=== PATIENT | female | born 1980 | race Caucasian/White ===

== ENCOUNTER 2020-01-26 11:51 | Outpatient (CLI) | payer BC, SELFPAY ==
--- NOTE | 2020-01-26 12:44 | ECG_ITS ---
Measurements Intervals [place] Rate: 57 P: 75 CT: 150 QRS: 83 QRSD: 88 T: 56 QT: 407 QTc: 399 Interpretive Statements SINUS BRADYCARDIA WITH SINUS ARRHYTHMIA BASELINE ARTIFACT- I, II, III, AVR, AVL, AVF BORDERLINE ECG Electronically Signed On 01-26-2020 13:00:10 CDT by Santi Shi D.O.
[2020-01-26 13:09] LABS: Basophils Absolute Auto 0.1 K/mm3 (0.0-0.1); Basophils Percent Auto 1.1 % (0.2-1.2); Eosinophils Absolute Auto 0.3 K/mm3 (0-0.3); Hematocrit 43.4 % (37.0-47.0); Hemoglobin 14.5 g/dL (12.0-15.0); Immature Granulocyte Absolute 0.01 K/mm3 (0.00-0.031); Immature Granulocyte Percent A 0.2 % (0-0.5); Lymphocytes Absolute Auto 1.51 K/mm3 (0.9-3.2); Lymphocytes Percent Auto 23.7 % (18.3-44.2); Mean Corpuscular HGB Conc 33.4 g/dl (32-36); Mean Corpuscular Volume 92.7 fl (80-100); Monocytes Absolute Auto 0.4 K/mm3 (0.1-0.6); Neutrophils Absolute Auto 4.1 K/mm3 (1.3-6.7); Platelet Count Result 208 k/mm3 (150-375); Red Blood Count 4.68 M/mm3 (4.2-5.4); Red Cell Distribution Width 12.1 % (11.5-14.5); White Blood Count 6.4 K/mm3 (4.5-10.0)
[2020-01-26 13:20] LABS: Prothrombin Time 12.8 Seconds (11.1-14.7)
[2020-01-26 13:21] LABS: Partial Thromboplastin Time 27.7 SECONDS (22.3-36.8)
[2020-01-26 13:29] LABS: Alanine Aminotransferase 19 U/L (4-35); Albumin Level 4.6 g/dL (3.5-5.1); Alkaline Phosphatase 59 U/L (38-126); Aspartate Amino Transferase 28 U/L (14-36); Bilirubin,Total 1.3 mg/dL (0.2-1.3); Blood Urea Nitrogen 15 mg/dL (7-17); Calcium 9.2 mg/dL (8.4-10.2); Carbon Dioxide 30 mmol/L (22-30); Chloride 102 mmol/L (98-107); Estimated Glomerular Filt Rate > 60; Glucose 84 mg/dL (65-105); Sodium 137 mmol/L (137-145)
== END 2020-01-26 11:52 | disposition home or self-care (01) ==
PROVIDERS: PCP Family Medicine; Visit Provider Urology
DX: N81.3 Complete uterovaginal prolapse (principal)
CPT/HCPCS: 36415; 80053; 85025; 85610; 85730; 87086; 93005

== ENCOUNTER 2020-02-05 00:12 | Outpatient (CLI) | payer BC, SELFPAY ==
[2020-02-05 15:54] LABS: SARS-CoV-2 RNA PCR Negative
== END 2020-02-05 00:13 | disposition home or self-care (01) ==
LOC: ANHCOVIDDT 00:12
PROVIDERS: PCP Family Medicine; Visit Provider Urology
DX: Z01.818 Encounter for other preprocedural examination (principal); Z11.59 Encounter for screening for other viral diseases
CPT/HCPCS: 87635; C9803; U0003

== ENCOUNTER 2020-02-08 04:09 | Day surgery (SDC) | payer BC, SELFPAY ==
[2020-01-26 12:43] VITALS: BP 104/70; PULSE 69; RESP 18; TEMP 36.7; O2SAT 97; BMI 23.5
--- NOTE | 2020-02-07 16:28 | WPDANESEPP ---
Anes - Eval Pre Procedure Procedure: Operation Date: 02/08/20 07:30 Proposed Procedures p Robotic Sacrocolpopexy with Urethral Sling - Jacky Doss MD s Robotic Assisted Supracervical Hysterectomy, Bilateral Salpingectomy - Dallin Head MD Date/Time: 02/07/20 16:28 Surgeon: kelin Pre Op Diagnosis: uterine/vaginal prolapse, stress incontinence, Patient Data Age: 39 Gender: F Height: 1.57 m Weight: 58.4 kg Last Vital Signs Temp 36.7 C 01/26/20 12:43 Pulse 69 01/26/20 12:43 Resp 18 01/26/20 12:43 BP 104/70 01/26/20 12:43 Pulse Ox 97 01/26/20 12:43 Allergies Allergy/AdvReac Type Severity Reaction Status Date / Time No Known Allergies Allergy Mild Verified 02/02/20 09:49 Home Medications Medication Instructions Recorded Confirmed Type beclomethasone dipropionate [Qvar 1 inh INHALATION DAILY 01/26/20 01/26/20 History RediHaler] fluticasone propionate [Flonase 1 spray INTRANASAL DAILY 01/26/20 01/26/20 History Allergy Relief] loratadine [Claritin] 10 mg PO DAILY 01/26/20 01/26/20 History lo-my-voal-FA-Ca carb-vit K 1 tablet PO DAILY 01/26/20 01/26/20 History [Women's Multivitamin] turmeric 500 mg PO DAILY 01/26/20 01/26/20 History Patient hx anesthesia problems: none Family hx anesthesia problems: none PMFSH Past Medical History Medical History (Updated 02/07/20 @ 16:29 by Sowmya Cruz CRNA) Asthma Scoliosis Stress incontinence Uterine prolapse Vaginal delivery Social History Social History Smoking status: Never smoker Second hand tobacco smoke exposure: No Alcohol intake: never Exam Day of Procedure 02/07/20 16:28
[2020-02-08] VITALS (15 sets, daily range): BP systolic 75–108; BP diastolic 41–66; PULSE 50–78; RESP 14–18; TEMP 36.3–36.8; O2SAT 96–100
--- NOTE | 2020-02-08 06:46 | WPDANESEPPF ---
Anes - Initial Pre Proc Eval Procedure: Operation Date: 02/08/20 07:30 Proposed Procedures p Robotic Sacrocolpopexy with Urethral Sling - Jacky Doss MD s Robotic Assisted Supracervical Hysterectomy, Bilateral Salpingectomy - Dallin Head MD Date/Time: 02/08/20 06:46 Surgeon: Jacky Doss MD Pre Op Diagnosis: uterine/vaginal prolapse, stress incontinence, Patient Data Age: 39 Gender: F Height: 5 ft 2 in Weight: 58.4 kg Last Vital Signs Temp 36.7 C 01/26/20 12:43 Pulse 69 01/26/20 12:43 Resp 18 01/26/20 12:43 BP 104/70 01/26/20 12:43 Pulse Ox 97 01/26/20 12:43 Allergies Allergy/AdvReac Type Severity Reaction Status Date / Time No Known Allergies Allergy Mild Verified 02/02/20 09:49 Home Medications Medication Instructions Recorded Confirmed Type beclomethasone dipropionate [Qvar 1 inh INHALATION DAILY 01/26/20 01/26/20 History RediHaler] fluticasone propionate [Flonase 1 spray INTRANASAL DAILY 01/26/20 01/26/20 History Allergy Relief] loratadine [Claritin] 10 mg PO DAILY 01/26/20 01/26/20 History ka-sm-zadu-FA-Ca carb-vit K 1 tablet PO DAILY 01/26/20 01/26/20 History [Women's Multivitamin] turmeric 500 mg PO DAILY 01/26/20 01/26/20 History Patient hx anesthesia problems: none Family hx anesthesia problems: none PMFSH Past Medical History Medical History Asthma Scoliosis Stress incontinence Uterine prolapse Vaginal delivery Family History Family History Father Family history of gastrointestinal disorder Family history of allergic disorder Sibling Family history of gastrointestinal disorder Grandparent Family history of pancreatic cancer Social History Social History Smoking status: Never smoker Second hand tobacco smoke exposure: No Alcohol intake: never Anes - Eval Final PreProcedure Day of Procedure 02/08/20 06:46 Patient weight: normal Heart: regular rate and rhythm Lungs: clear to auscultation Airway: Mallampati scale class II Neurological: alert and oriented Last oral intake: >/= 8 hours ASA classification: II Emergent: no Anesthetic plan: proceed Anesthesia type and monitoring: general ETT and standard monitoring Informed Consent: The patient's anesthetic plan and its attendant risks and benefits were discussed with the patient/family/POA. Questions were solicited and answers provided to the satisfaction of the patient/family/POA.
[2020-02-08] MEDS: LACTATED RINGERS 1,000 ML 30 ML IV CONT ×2 (06:50→11:01)
--- NOTE | 2020-02-08 07:22 | WPDHPUPDATE1 ---
History and Physical Update Update Date/Time: 02/08/20 07:22 History and Physical has been reviewed, including an updated exam of the patient. There are NO changes in the patient's condition. Risks, benefits, and alternatives have been discussed and questions answered. Patient agrees to proceed with procedure.
--- NOTE | 2020-02-08 07:36 | PM.IMHP ---
H&P: HPI History of Present Illness Chief complaint: uterine/vaginal prolapse, stress incontinence, Narrative: Lashon De La Rosa is a 39 year old female with long history of uterine prolapse which she has been using a pessary. She desires definitive treatment. She has been evaluated by Dr. Doss. She desires the supracervical hysterectomy with bilateral salpingectomy and will be getting the sacral colpopexy by Dr. Doss. Review of Systems Review of Systems: All systems reviewed & are unremarkable except as noted in HPI and below Constitutional: Constitutional: Reports no additional constitutional complaints Eyes: Eyes: Reports no additional eye complaints ENT: Reports Normal hearing present Cardiovascular: Cardiovascular: Denies chest pain and Denies dyspnea Respiratory: Respiratory: Reports no additional respiratory complaints, Reports cough, Denies dyspnea and Reports other Gastrointestinal: Gastrointestinal: Denies abdominal pain Genitourinary: Genitourinary: Reports no additional female genitourinary complaints, Reports as per HPI, Denies dyspareunia, Denies vaginal discharge, Denies vaginal dryness, Denies vaginal odor and Denies vaginal pruritus Neurologic: Reports Normal hearing present Psychiatric: Psychiatric: Reports no additional psychiatric complaints Endocrine: Endocrine: Reports no additional endocrine complaints Hematologic/Lymphatic: Hematologic/Lymphatic: Reports no additional hematologic/lymphatic complaints [facility] Past Medical History Medical History Asthma Scoliosis Stress incontinence Uterine prolapse Vaginal delivery Family History Family History Father Family history of gastrointestinal disorder Family history of allergic disorder Sibling Family history of gastrointestinal disorder Grandparent Family history of pancreatic cancer Social History Social History Smoking status: Never smoker Second hand tobacco smoke exposure: No Alcohol intake: never Meds Home Medications and Allergies Home Medications Medication Instructions Recorded Confirmed Type beclomethasone dipropionate [Qvar 1 inh INHALATION DAILY 01/26/20 02/08/20 History RediHaler] fluticasone propionate [Flonase 1 spray INTRANASAL DAILY 01/26/20 02/08/20 History Allergy Relief] loratadine [Claritin] 10 mg PO DAILY 01/26/20 02/08/20 History xq-xv-lctu-FA-Ca carb-vit K 1 tablet PO DAILY 01/26/20 02/08/20 History [Women's Multivitamin] turmeric 500 mg PO DAILY 01/26/20 02/08/20 History Allergies Allergy/AdvReac Type Severity Reaction Status Date / Time No Known Allergies Allergy Mild Verified 02/08/20 07:30 Exam Const: General: healthy appearing, no acute distress, alert and awake Nutritional Appearance: well nourished Orientation/consciousness: oriented to person, oriented to place, oriented to time and patient oriented x3 Limitations: no limitations HENMT: Head: normal to inspection Ears: hearing grossly normal bilaterally Eyes: General: appearance normal, both eyes and all related structures Neck: Neck: normal visual inspection Resp: Effort & Inspection: normal respiratory effort and other Auscultation: clear to auscultation bilaterally Cardio: Rate: regular rate Rhythm: regular rhythm GI: Inspection: normal to inspection GI Palp: Yes No hepatosplenomegaly present Rectal Exam: visual inspection normal : General: Yes bladder normal to palpation External Female Exam: normal external appearance and normal appearance of the urethra Speculum Exam - Vagina: normal appearance of the vagina Speculum Exam - Cervix: normal appearance of the cervix and Other cervical findings present (cervix descends to introitus) Bimanual exam- vagina & uterus: normal bimanual exam, uterine size normal, bladder normal to palpation, cons
[2020-02-08] MEDS: ceFAZolin 2 GM/D5W 50 ML 2 GM/50 ML BAG IVPB (07:46)
[2020-02-08] MEDS: metroNIDAZOLE 500 MG/ISO 100ML 500 MG/100 ML BAG 100 MG IVPB ×2 (07:56→16:21)
[2020-02-08] MEDS: BUPIVACAINE/EPINEPHRINE 0.25% 50 ML VIAL 20 ML INFILTRATE (08:32)
--- NOTE | 2020-02-08 09:04 | PM.PROC ---
Procedure Note - Detailed Date of procedure: 02/08/20 Pre-op diagnosis: uterine/vaginal prolapse, stress incontinence, Post-op diagnosis: same Procedure performed: Da roz assisted laparoscopic supracervical hysterectomy and bilateral salpingectomy Description of procedure: After informed consent was obtained patient was taken to the operating room. She was prepped and draped in sterile fashion. Dr. Doss placed the robotic ports. Attention was turned to the vagina speculum was inserted and a single-tooth tenaculum was placed on the anterior lip of the cervix the uterus was sounded to 6 cm the acorn uterine manipulator was placed into the cervical canal. Attention was then turned to the surgery console. Attention was turned to the right round ligament which was cauterized and incised the anterior leaf of the broad ligament was further dissected anteriorly to the vesicouterine peritoneum the bladder was dissected off of the upper lower uterine segment. The attention was turned to the right fallopian tube which was cauterized from the mesosalpinx. The right ovarian ligament was cauterized and incised. The ascending uterine vessels were cauterized. The uterine arteries were skeletonized. The attention was then turned to the left and the left fallopian tube was cauterized from the nasal salpinx attention was then turned to the left round ligament which was cauterized and incised anteriorly the vesicouterine peritoneum was incised from the left side and the bladder was dissected from the upper lower uterine segment. The left ovarian ligament was cauterized and the ascending uterine vessels were cauterized the posterior leaf of the broad ligament was further dissected and the uterine arteries were skeletonized. The uterine arteries were cauterized on the left and the right. The uterus was then cauterized from the cervix at the level of the internal os. The cervical bed and the upper internal os was cauterized hemostasis was noted. EBL was 5 cc. Anesthesia: GETA Surgeon: Dallin Head MD Estimated blood loss (mL): 5 IV fluids (mL): 700 Urine output (mL): 200 Drains: No Packing: No Pathology: yes (uterus and right and left fallopian tubes) Complications: No immediate complications Condition: stable Disposition: other (Patient remained in OR for Dr. Quijano procedure) Findings: uterus 8-10 week size, normal fallopian tubes and ovaries bilaterally
--- NOTE | 2020-02-08 09:11 | SUR.OPER ---
Sonido Ebl=5ml
[2020-02-08] MEDS: IBUPROFEN IV 800 MG/200 ML 800 MG/200 ML BAG 400 MG IVPB (10:38)
--- NOTE | 2020-02-08 10:45 | SUR.OPER ---
Doss Ebl=20ml
--- NOTE | 2020-02-08 10:49 | PM.PROC ---
Procedure Note - Detailed Date of procedure: 02/08/20 Pre-op diagnosis: uterine/vaginal prolapse, stress incontinence, Uterine prolapse Post-op diagnosis: same Procedure performed: Robotic assisted laparoscopic sacral colpopexy Cystoscopy Description of procedure: She understood the risks of bleeding, infection, damage to surrounding organs, bowel injury, bowel obstruction, recurrence of prolapse, persistent or recurrent stress incontinence, mesh related complications including exposure and extrusion, diskitis, postoperative voiding dysfunction including incontinence and retention, hip and leg pain, dyspareunia, and she agrees to proceed. She was correctly identified and informed consent was obtained. She was brought to the operating room. She was given general anesthesia. She was placed in the dorsal lithotomy position. All pressure points were padded. She was given appropriate perioperative antibiotics. Time-out performed. I anesthetized the skin 3 fingerbreadths cephalad to the umbilicus. I incised the skin. I dissected down to locate the fascia. I grasped the fascia with Olegario clamps. I entered the fascia sharply. I placed Vicryl sutures for later fascial closure. I placed a midline trocar. Under direct vision 2 additional trocars were placed on the right and left upper quadrant. She was placed in steep Trendelenburg and the robot was docked. Her senior product development scientist performed the portion of the procedure and left the specimen and a sac which was extracted. I then sat at the console. With the Sizer in the vagina I created a plane on the anterior and posterior vaginal wall. This was done for several cm taking great care not to injure the vagina, bladder, or rectum. I introduced the mesh into the abdomen. I sewed the anterior leaflet of mesh on the anterior vaginal wall and posterior leaf of the mesh on the posterior vaginal wall with several Harford-Shaw sutures taking great care not to go through and through. I then reflected the colon laterally. I opened up the posterior peritoneum over the sacral promontory. I carried this into the cul-de-sac. I kept the ureters lateral. I freed up the edges. I located the anterior longitudinal ligament of the sacrum. I tensioned the mesh appropriately. I did a vaginal exam to ensure prolapse reduction without undue tension. I then sewed the proximal leaflet of mesh onto the ligament with 3 sutures of 2 0 Harford-Shaw. Next the mass was meticulously retroperitonealized with a running 2 0 Monocryl suture. I allowed the colon to go back into its normal anatomic location. There is no signs of any impingement or stricturing. The abdomen was exited. Fascia was closed. Skin was closed with Monocryl and glue. I then performed cystoscopy. The bladder is examined. There was no tumors, stones, foreign bodies, surgical artifact. Both ureters were seen to excrete clear yellow urine. There is no surgical artifact in the urethra. Catheter was then replaced. She was awakened and transferred to the PACU in stable condition. Anesthesia: GLMA Surgeon: Jacky Doss MD Drains: Yes (Jung catheter) Packing: Yes Complications: No immediate complications Condition: stable Disposition: PACU
--- NOTE | 2020-02-08 11:58 | SUR.PHASEI ---
Dr. Padgett made aware of BP and he is ok with pressure since patient is asymtomatic.
--- NOTE | 2020-02-08 12:33 | PC.NURSE ---
This patient, Lashon De La Rosa, was received from PACU per bed to room 283. Patient/family oriented to unit policies and routines
[2020-02-08] MEDS: ONDANSETRON INJ 4 MG/2 ML VIAL IV PUSH ×2 (12:41→18:22)
[2020-02-08] MEDS: KCL 20 MEQ/D5/0.45% SOD CHL 1,000 ML 100 ML IV CONT (12:41)
[2020-02-08] MEDS: KETOROLAC 30 MG/ML VIAL (*BKC) IV PUSH (17:19)
[2020-02-08] MEDS: SIMETHICONE 80 MG TAB.CHEW (21:10)
[2020-02-09] MEDS: SIMETHICONE 80 MG TAB.CHEW PO ×4 (00:15→13:38)
[2020-02-09] MEDS: metroNIDAZOLE 500 MG/ISO 100ML 500 MG/100 ML BAG 100 MG IVPB ×2 (00:30→08:30)
[2020-02-09] MEDS: KETOROLAC 30 MG/ML VIAL (*BKC) IV PUSH (04:25)
[2020-02-09 04:30] VITALS: BP 78/45; PULSE 69; RESP 16; TEMP 36.8
[2020-02-09] MEDS: ACETAMINOPHEN 325 MG TABLET 650 MG PO ×2 (07:34→13:38)
[2020-02-09] MEDS: ENOXAPARIN 30 MG/0.3 ML SYRINGE SUB-Q (07:37)
--- NOTE | 2020-02-09 07:47 | WPDANESPN ---
Anes - Prog Note Post-Op Date/Time: 02/09/20 07:47 Cardiovascular status: normal Respiratory status: normal Airway patency: baseline Mental status: baseline Post-Op hydration status: normal Vital Signs: Last Vital Signs Temp 36.8 C 02/09/20 04:30 Pulse 69 02/09/20 04:30 Resp 16 02/09/20 04:30 BP 78/45 L 02/09/20 04:30 Pulse Ox 98 02/08/20 15:55 I/O: Intake & Output 02/08/20 02/08/20 02/09/20 15:59 23:59 07:59 Intake Total 888 684 2059 Output Total 299 582 2062 Balance 150 -300 50 02/08/20 06:52 Blood Type O Positive Antibody Screen Negative Post-procedural complaints: none Patient Feedback: Patient satisfied with anesthetic care.
[2020-02-09 07:50] VITALS: BP 95/58; PULSE 63; RESP 18; TEMP 37.2; O2SAT 99
[2020-02-09] MEDS: DOCUSATE SODIUM 100 MG CAPSULE PO (09:40)
[2020-02-09] MEDS: CEPHALEXIN 500 MG CAPSULE PO (13:39)
--- NOTE | 2020-02-09 22:17 | P.PNOB_ITS ---
SUPERVISOR RECORDS CHANGE - A/P Assessment and plan (1) Status post hysterectomy: Code(s): Z90.710 - Acquired absence of both cervix and uterus Status: Acute Assessment and Plan: POD1 s/p Robotic supracervical hysterectomy/sacral colpopexy. She is doing well. Encouraged to ambulate, advance diet to regular. Anticipate discharge later in the day. Postoperative Procedures: Procedures Operation Date: 02/08/20 07:30 Actual Procedures Side Surgeon p Robotic Sacrocolpopexy Jacky Doss MD s Robotic Assisted Supracervical Hysterectomy, Bilateral Salpingectomy Bilateral Dallin Head MD Time Spent With Patient Time: Total time spent is greater than 50% in coordination of care (as documented) at patient's floor/unit and/or counseling patient: Time with patient: less than 15 minutes SUPERVISOR RECORDS CHANGE- PN:Subj Post-Op Subjective Date/time seen: 02/09/20 Seen at 0715 She reports adequate pain control. Had not ambulated much in the morning. Tolerated full liquid diet. No flatus. No leg pain. Review of Systems Review of Systems: All systems reviewed & are unremarkable except as noted in HPI and below Cardiovascular: Cardiovascular: Reports no additional cardiovascular complaints Respiratory: Respiratory: Reports no additional respiratory complaints Gastrointestinal: Gastrointestinal: Reports belching, Denies nausea and Denies vomiting Genitourinary: Genitourinary: Reports no additional female genitourinary complaints Musculoskeletal: Musculoskeletal: Reports no additional musculoskeletal complaints Exam Const: General: comfortable and no acute distress Orientation/consciousness: oriented to person, oriented to place and oriented to time Resp: Auscultation: clear to auscultation bilaterally Cardio: Rate: regular rate Rhythm: regular rhythm GI: GI Palp: Yes Soft to palpation, Yes Tenderness to palpation present (GI) and Yes Other GI palpation findings present (appropriate tenderness, bruising at umbilical incision, no drainage) Auscultation: Hypoactive bowel sounds present Neuro: General: oriented to person, oriented to place and oriented to time Extrem: General: no calf tenderness Psych: Mental Status: mental status grossly normal SUPERVISOR RECORDS CHANGE - PN: Obj Data Vital Signs Vital Signs: Vital Signs - 24 hr 02/09/20 04:30 02/09/20 07:50 Temperature 98.3 F 99 F Pulse Rate 69 63 Respiratory Rate 16 18 Blood Pressure 78/45 L 95/58 L Pulse Oximetry 99 Intake/Output Intake/Output: Intake & Output 02/06/20 02/07/20 02/08/20 02/09/20 23:59 23:59 23:59 23:59 Intake Total 1300 2150 Output Total 1450 2300 Balance -150 -150
--- NOTE | 2020-02-09 22:26 | P.DS_ITS ---
DS: Admitting Diagnosis Admitting Diagnosis Admitting Diagnosis: Uterine prolapse DS: Discharge Diagnosis Discharge Diagnosis (1) Uterine prolapse: Code(s): N81.4 - Uterovaginal prolapse, unspecified Status: Acute DS: Summary Time Spent with Patient Time attestation: Total time spent providing and/or coordinating discharge services: Exam GI: Other: incisions healing, mild bruising, no drainage, bowel sounds present. Ext nontender Perineal pad dry Extrem: Other: nontender, no swelling Psych: Affect: normal affect DS: Data Data Completed and Pending Completed studies during hospitalization: Pending at discharge 02/08/20 08:58 Surgical [PTH] Routine Discharge Plan Discharge Consulting providers: Dallin Head Patient Disposition: Home, Self-Care Discharge Instructions: No lifting >20lb, exercise for 6 weeks No tub bath or pool for 2 weeks Patient Instructions: Menopause (GEN), Hysterectomy (DC) Follow-up/Referrals: Jacky Doss MD [Physician] - 6 Weeks Dallin Head MD [Physician] - Discharge Orders: Discharge Order (Routine); Ordered 02/09/20 Ordered By: Dallin Head Discharge Medications: New hydrocodone-acetaminophen [Hubertus] 5-325 mg tablet 1 tablet PO Q4H PRN (Reason: pain) Qty: 20 RF: 0 docusate sodium [Colace] 100 mg capsule 100 mg PO BID Qty: 60 RF: 0 Continued fluticasone propionate [Flonase Allergy Relief] 50 mcg/actuation [place],Suspension 1 spray INTRANASAL DAILY RF: 0 loratadine [Claritin] 10 mg Tablet 10 mg PO DAILY RF: 0 Qvar RediHaler 40 mcg/actuation Hfa Aerosol Breath Activated 1 inh INHALATION DAILY RF: 0 Women's Multivitamin 18 mg-400 mcg- 500 mg-50 mcg Tablet 1 tablet PO DAILY RF: 0 turmeric 400 mg Capsule 500 mg PO DAILY RF: 0 Primary Care Provider: Sharmaine Dangelo Discharge Date/Time: 02/09/20 14:39 Attending physician on admission: Jacky Doss
== END 2020-02-09 14:39 | disposition home or self-care (01) ==
LOC: ANHSURGERY 08:40 → ANHOB2 12:33
PROVIDERS: Obstetrics & Gynecology; PCP Family Medicine; Visit Provider Urology
PROC: (CPT 57425; principal; 2020-02-08 07:30)
PROC: 0UT94ZZ Resection of Uterus, Percutaneous Endoscopic Approach (ICD-10-PCS; CPT 57425; 2020-02-08 07:30)
DX: N81.3 Complete uterovaginal prolapse (principal); N39.3 Stress incontinence (female) (male)
CPT/HCPCS: 58541; 57425; 36415; 86850; 86900; 86901; 88307; 99199; A9270; C1781; J0131; J0330; J0690; J1100; J1170; J1200; J1650; J1741; J1885; J2250; J2405; J2704; J2710; J3010; J3480; J7030; J7120

== ENCOUNTER → 2020-04-20 10:15 | Outpatient (CLI) | payer BC, SELFPAY ==
--- NOTE | ~2020-04-20 | XR_ITS ---
EXAMINATION: XR lumbar spine 2-3V DATE: 04/20/2020 10:37 INDICATION: Dorsalgia unspecified, chronic low back pain TECHNIQUE: Anteroposterior and lateral views of the lumbar spine, and cone-down lateral view of the l umbosacral junction were obtained. COMPARISON: 07/09/2017 FINDINGS: Thoracolumbar dextroscoliosis is not significantly changed. There is no fracture, dislocati on, or subluxation. The vertebral body heights are normal. There is mild loss of intervertebral disc space height at L4-5 and L5-S1. A moderate volume of colonic stool is present. IMPRESSION: 1. Mild lumbar spondylosis without acute findings or significant interval change. Reviewed, dictated and finalized at location A. IMPRESSION: 1. Mild lumbar spondylosis without acute findings or significant interval tan yamilet
== END ==
PROVIDERS: PCP Physician Assistant; Visit Provider Physician Assistant
DX: M47.896 Other spondylosis, lumbar region (principal)
CPT/HCPCS: 72100

== ENCOUNTER → 2020-04-20 10:18 | Outpatient (CLI) | payer BC, SELFPAY ==
--- NOTE | ~2020-04-20 | MM_ITS ---
EXAMINATION: MM screening bruna BI w piero HISTORY: Screening mammogram TECHNIQUE: Craniocaudal and mediolateral oblique 3-D tomosynthesis images were obtained and synthetic 2-D images were generated. CAD analysis was submitted and interpreted. COMPARISON: No prior mammogram is available for comparison at this institution. BREAST PARENCHYMAL COMPOSITION: The breasts are extremely dense, which lowers the sensitivity of mamm ography. FINDINGS: There is no evidence of suspicious mass, calcification, or architectural distortion to sugg est malignancy in either breast. There has been no suspicious interval change. IMPRESSION: 1. No mammographic evidence of malignancy. 2. Recommend routine screening mammography in one year. BI-RADS Category 1: Negative Reviewed, dictated and finalized at location A.
== END ==
PROVIDERS: PCP Family Medicine; Visit Provider Obstetrics & Gynecology
DX: Z12.31 Encounter for screening mammogram for malignant neoplasm of breast (principal)
CPT/HCPCS: 77063; 77067

== ENCOUNTER → 2020-05-21 07:42 | Outpatient (CLI) | payer BC, SELFPAY ==
--- NOTE | ~2020-05-21 | MR_ITS ---
EXAMINATION: MR lumbar spine wo con DATE: 05/21/2020 08:17 INDICATION: Chronic right-sided low back pain radiating down right leg. TECHNIQUE: Magnetic resonance imaging (MRI) of the lumbar spine was performed without intravenous con trast. Sequences included sagittal T2-weighted FSE, sagittal T2-weighted FS FSE, sagittal T1-weighted FSE, and axial T2-weighted FSE. COMPARISON: Lumbar spine radiographs 04/20/2020 FINDINGS: There is 17 degrees dextroscoliosis of thoracolumbar spine. Vertebral body heights are norm al. There is mildly decreased disc height at L1-L2, moderately decreased disc height at L4-L5, and mi ldly decreased disc height at L5-S1. The distal spinal cord signal intensity is normal. The conus med ullaris is at L1. The following disc levels are specifically discussed: L1-L2: The disc is mildly bulging. There is mild bilateral facet joint osteoarthritis. There is no ne ural foraminal stenosis. There is no central canal stenosis. L2-L3: The disc is mildly bulging. There is mild bilateral facet joint osteoarthritis. There is no ne ural foraminal stenosis. There is no central canal stenosis. L3-L4: The disc is mildly bulging. There is mild bilateral facet joint osteoarthritis. There is no ne ural foraminal stenosis. There is no central canal stenosis. L4-L5: The disc is bulging. There is mild bilateral facet joint osteoarthritis. There is mild bilater al neural foraminal stenosis. There is mild central canal stenosis. L5-S1: The disc is bulging and has an annular fissure. There is mild bilateral facet joint osteoarthr itis. There is mild right neural foraminal stenosis. There is mild central canal stenosis. IMPRESSION: 1. Mild lumbar spondylosis. 2. Thoracolumbar dextroscoliosis. Reviewed, dictated and finalized at location A.
== END ==
PROVIDERS: Visit Provider Family Medicine
DX: M54.5 Low back pain (principal); Z87.39 Personal history of other diseases of the musculoskeletal system and connective tissue; M47.816 Spondylosis without myelopathy or radiculopathy, lumbar region; M41.85 Other forms of scoliosis, thoracolumbar region
CPT/HCPCS: 72148